=== PATIENT | male | born 2000 | race Caucasian/White ===

== ENCOUNTER 2019-10-10 08:17 | Emergency (ER) | payer OTHER ==
[2019-10-10 08:53] VITALS: BP 108/65
--- NOTE | 2019-10-10 09:08 | UC ---
Dental HPI - HPI Summary HPI Summary: 18 yo with left lower jaw pain x 2 days, with ? eruption of a new tooth between his molars. For control of pain, he has been taking acetaminophen direct from the bottle without measuring. He has not brought the bottle along. Assumiong an 8 ounce bottle of acetaminophen, dose of 160mg in 5, essential he could have taken up to 8 grams of aceteminophen between 6 and 11 pm last night. He has had emesis x 5 over the past hours with epigastric pain associated. denies any other ingestion. The bottle of acetaminophen is not available to check on dose or quantity. - History of Current Complaint Chief Complaint: UCGI Stated Complaint: DENTAL PAIN /VOMITTING W/BLOOD Time Seen by Provider: 10/10/19 08:58 Hx Obtained From: Patient Onset/Duration: Sudden Onset, Lasting Hours Severity: Moderate Pain Intensity: 8 Aggravating Factor(s): Nothing Alleviating Factor(s): OTC Meds - Allergies/Home Medications Allergies/Adverse Reactions: Allergies Allergy/AdvReac Type Severity Reaction Status Date / Time Penicillins Allergy Rash And Verified 10/10/19 08:44 Itching Home Medications: Home Medications Acetaminophen [Children's Acetaminophen] 0.5 bottle PO Q4H PRN 10/10/19 [ History Confirmed 10/10/19] PMH/Surg Hx/FS Hx/Imm Hx Previously Healthy: Yes - Surgical History Surgical History: None - Family History Known Family History: Positive: None, Non-Contributory - Social History Occupation: Unemployed Lives: With Family Alcohol Use: None Substance Use Type: None Smoking Status (MU): Never Smoked Tobacco - Immunization History Vaccination Up to Date: Yes Review of Systems All Other Systems Reviewed And Are Negative: Yes Constitutional: Positive: Negative Skin: Positive: Negative Eyes: Positive: Negative ENT: Positive: Dental Pain Respiratory: Positive: Negative Gastrointestinal: Positive: Vomiting, Nausea Genitourinary: Positive: Negative Motor: Positive: Negative Neurovascular: Positive: Negative Musculoskeletal: Positive: Negative Neurological: Positive: Negative Physical Exam Triage Information Reviewed: Yes Appearance: Pain Distress - mild, Thin Vital Signs: Initial Vital Signs Temp 99 F 10/10/19 08:47 Pulse 65 10/10/19 08:47 Resp 14 10/10/19 08:47 BP 108/65 10/10/19 08:47 Pulse Ox 100 10/10/19 08:47 ENT Exam: Normal Dental Exam: Other - gum inflammation lower jaw line. Neck: Positive: Supple, Nontender, No Lymphadenopathy Respiratory: Positive: Lungs clear, Normal breath sounds Cardiovascular: Positive: RRR, No Murmur Abdomen Description: Positive: No Organomegaly, Soft, Other: - epigastric tenderness without rebound. Negative: Distended, Guarding Musculoskeletal Exam: Normal Neurological Exam: Normal Neurological: Positive: Alert Psychological Exam: Normal Skin Exam: Normal Dental Complaint Course/Dx - Course Course Of Treatment: possible acetaminophen overdose based on history--advised ER for level and evaluation. - Differential Dx/Diagnosis Differential Diagnosis/Dx: Dental Abscess Provider Diagnosis: Accidental acetaminophen overdose - Physician Notification/Consults Discussed Patient Care With: Galilea Townsend Time Discussed With Above Provider: 09:20 Discharge ED - Sign-Out/Discharge Documenting (check all that apply): Patient Departure All imaging exams completed and their final reports reviewed: No Studies - Discharge Plan Condition: Stable Disposition: TRANS HIGHER LVL OF CARE FAC Patient Education Materials: Safe Use of Acetaminophen (ED) Referrals: Arin Salgado MD [Primary Care Provider] - Additional Instructions: Please proceed directly to [facility] emergency room for evaluation of possible acetaminophen overdose. - Billing Disposition and Condition Condition: STABLE Disposition: Trans Higher Lvl of Care Fac
[2019-10-10] MEDS ORDERED: Ondansetron ODT TAB* 4 MG PO ONE (09:10)
== END 2019-10-10 09:29 | disposition short-term general hospital (02) ==
LOC: UCCORT 08:17
DX: T39.1X1A Poisoning by 4-Aminophenol derivatives, accidental (unintentional), initial encounter (principal); R11.2 Nausea with vomiting, unspecified; R10.13 Epigastric pain; Z88.0 Allergy status to penicillin; Y92.9 Unspecified place or not applicable
CPT/HCPCS: 99202; A9270-GY; G0463